=== PATIENT | male | born 1965 ===

== ENCOUNTER 2019-03-21 13:07 | Emergency (ER) | payer OTHER ==
[2019-03-21 13:39] VITALS: BP 144/82; PULSE 86; RESP 16; TEMP 99; O2SAT 99
--- NOTE | 2019-03-21 13:41 | C.PDOC ---
History Of Present Illness 53 year old male with no pertinent medical problems presents to the ED complaining of gradual loss of vision from left eye for 5 days. Reports he is not able to see anything from the eye. Associated symptoms include eye burning but denies any eye pain. Denies prior presentation of similar symptoms. Denies weakness, nausea, vomiting, headache, neck pain, dizziness, or headache. Patient does not wear contact lenses or glasses. Chief Complaint (Nursing): Eye Problem History Per: Patient History/Exam Limitations: no limitations Onset/Duration Of Symptoms: Days (5) Current Symptoms Are (Timing): Still Present Quality: Burning Wears Contact Lens?: No Associated Symptoms: Decreased Vision Past Medical History Reviewed: Historical Data, Nursing Documentation, Vital Signs - Medical History PMH: No Chronic Diseases Surgical History: No Surg Hx - [facility] Procedures DIPHTHERIA TOXOID ADMIN (07/07/13) TETANUS TOXOID ADMINIST (07/07/13) Family History: States: No Known Family Hx - Social History Hx Tobacco Use: No Hx Alcohol Use: Yes Hx Substance Use: No - Immunization History Hx Tetanus Toxoid Vaccination: Yes Hx Influenza Vaccination: No Hx Pneumococcal Vaccination: No Review Of Systems Except As Marked, All Systems Reviewed And Found Negative. Eyes: Positive for: Vision Change (loss of vision from left eye ), Other (left eye burning ) Gastrointestinal: Negative for: Nausea, Vomiting Musculoskeletal: Negative for: Neck Pain Neurological: Negative for: Headache, Dizziness Physical Exam - Physical Exam Appears: Non-toxic, No Acute Distress Skin: Warm, Dry Head: Normacephalic Eye(s): bilateral: PERRL, left: Other (opacified pupil ) Nose: Normal Oral Mucosa: Moist Neck: Supple Chest: Symmetrical Cardiovascular: Rhythm Regular, No Murmur Respiratory: No Rales, No Rhonchi, No Wheezing, Other (Good air movement, Lungs CTA bilaterally) Neurological/Psych: Oriented x3, Normal Speech Gait: Steady ED Course And Treatment O2 Sat by Pulse Oximetry: 99 (RA) Medical Decision Making Medical Decision Making: Plan - Acuity Test Right Eye 20/30, Left Eye 0 13:[address] Mills. States that it sounds like cataracts. States he can see patient tomorrow in his office between 11AM-12PM. As per RN who served as driver medic, patient agrees to go tomorrow to see Dr. Mills. Disposition Counseled Patient/Family Regarding: Diagnosis, Need For Followup - Disposition Referrals: Blu Mills MD [Staff Provider] - Disposition: HOME/ ROUTINE Disposition Time: 13:42 Condition: STABLE Additional Instructions: Ve a la oficina del doctor Gene manana entre las horas 11am y 12pm. Instructions: Cataracts (DC) Forms: Gen Discharge Inst Mosotho, [facility] (Mosotho) Print Language: CYPRIOT - POA Present On Arrival: None - Clinical Impression Clinical Impression: Visual loss, left eye, Cataract - Scribe Statement The provider has reviewed the documentation as recorded by the Scribe Yaneth Gil All medical record entries made by the Scribe were at my direction and personally dictated by me. I have reviewed the chart and agree that the record accurately reflects my personal performance of the history, physical exam, medical decision making, and the department course for this patient. I have also personally directed, reviewed, and agree with the discharge instructions and disposition.
--- NOTE | 2019-03-21 13:44 | C.PDOC ---
History Of Present Illness 53 year old male presents to the ED complaining of gradual loss of vision from left eye for 5 days. Reports he is not able to see anything from the eye. Associated symptoms include eye burning but denies any eye pain. Denies prior presentation of similar symptoms. Denies weakness, nausea, vomiting, Chief Complaint (Nursing): Eye Problem Past Medical History Vital Signs: Last Vital Signs Temp 99.0 F 03/21/19 13:15 Pulse 86 03/21/19 13:15 Resp 16 03/21/19 13:15 BP 144/82 03/21/19 13:15 Pulse Ox 99 03/21/19 13:15 Primary Care Provider: FAMILY PROVIDER,NO - [facility] Procedures DIPHTHERIA TOXOID ADMIN (07/07/13) TETANUS TOXOID ADMINIST (07/07/13) - Social History Hx Tobacco Use: No Hx Alcohol Use: No Hx Substance Use: No - Immunization History Hx Tetanus Toxoid Vaccination: Yes Hx Influenza Vaccination: No Hx Pneumococcal Vaccination: No ED Course And Treatment O2 Sat by Pulse Oximetry: 99 (RA) Pulse Ox Interpretation: Normal Disposition - Disposition - Scribe Statement The provider has reviewed the documentation as recorded by the Scribe Yaneth Gil All medical record entries made by the Scribe were at my direction and personally dictated by me. I have reviewed the chart and agree that the record accurately reflects my personal performance of the history, physical exam, medical decision making, and the department course for this patient. I have also personally directed, reviewed, and agree with the discharge instructions and disposition.
== END 2019-03-21 14:00 | disposition home or self-care (01) ==
LOC: C.ER 13:07
DX: H26.9 Unspecified cataract (principal); H54.62 Unqualified visual loss, left eye, normal vision right eye